=== PATIENT | male | born 1975 | race Caucasian/White ===

== ENCOUNTER 2020-01-02 19:04 | Emergency (ER) | payer OTHER ==
[2020-01-02] MEDS ORDERED: Ketorolac 15 MG/ML SDV IM ONE (19:25)
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
== END 2020-01-02 19:49 | disposition home or self-care (01) ==
LOC: MW.ED 19:04
DX: S13.4XXA Sprain of ligaments of cervical spine, initial encounter (principal); Z88.2 Allergy status to sulfonamides; V29.9XXA Motorcycle rider (driver) (passenger) injured in unspecified traffic accident, initial encounter
CPT/HCPCS: 96372; 99283; J1885